=== PATIENT | male | born 1965 | race Caucasian/White ===

== ENCOUNTER 2025-04-23 15:42 | Outpatient (CLI) | payer SELFPAY | END 2025-04-23 15:43 | disposition home or self-care (01) | LOC: LAB 04-28 07:24 | PROVIDERS: Visit Provider Pediatrics | DX: M19.90 Unspecified osteoarthritis, unspecified site (principal); R73.03 Prediabetes; Z76.89 Persons encountering health services in other specified circumstances | CPT/HCPCS: 80053; 80061; 83036; 85025; 85651; 86140 ==